=== PATIENT | female | born 1980 | race Caucasian/White ===

== ENCOUNTER 2016-10-25 09:16 | Emergency (ER) | payer MEDICAID | END 2016-10-25 11:14 | disposition left against medical advice (07) | LOC: UCCORT 09:16 | DX: M25.562 Pain in left knee (principal); Z53.21 Procedure and treatment not carried out due to patient leaving prior to being seen by health care provider ==

== ENCOUNTER 2017-06-20 10:35 | Emergency (ER) | payer OTHER ==
[2017-06-20] MEDS ORDERED: Albuterol/Ipratropium NEB.SOL* Albuterol 2.5 MG/Ipratropium 0.5 MG 3 ML INH ONE (11:13)
--- NOTE | 2017-06-20 11:14 | UC ---
Respiratory Complaint HPI - HPI Summary HPI Summary: worsening non productive cough for 1 week, has been using her albuterol but cough and chest tightness is getting worse - History of Current Complaint Chief Complaint: UCRespiratory Stated Complaint: CONGESTION COUGH Time Seen by Provider: 06/20/17 11:07 Hx Obtained From: Patient Hx Last Menstrual Period: 02/20/16 ?: No Onset/Duration: Gradual Onset, Lasting Days - 7, Still Present Timing: Constant Severity Initially: Mild Severity Currently: Moderate Character: Cough: Nonproductive Aggravating Factors: Nothing Alleviating Factors: Nothing Associated Signs And Symptoms: Positive: Chills - Allergies/Home Medications Allergies/Adverse Reactions: Allergies Allergy/AdvReac Type Severity Reaction Status Date / Time Erythromycin Allergy Intermediate Abdominal Verified 06/20/17 11:13 Pain Esomeprazole [From Nexium] Allergy Intermediate Abdominal Verified 06/20/17 11: 13 Pain Ibuprofen AdvReac Unknown d/t Verified 06/20/17 11:13 gastric bypass PMH/Surg Hx/FS Hx/Imm Hx Previously Healthy: No Respiratory History: Asthma - Surgical History Surgical History: Yes Surgery Procedure, Year, and Place: BENIGN TUMORS REMOVED FROM L BREAST, gastric bypass. 12/2014-gallbladder and 2 "internal hernias" - Family History Known Family History: Positive: None - Social History Occupation: Employed Full-time Lives: With Family Alcohol Use: Rare Substance Use Type: None Smoking Status (MU): Former Smoker Have You Smoked in the Last Year: No - Immunization History Most Recent Influenza Vaccination: [id number] Most Recent Tetanus Shot: up to date Most Recent Pneumonia Vaccination: none Review of Systems Constitutional: Chills, Fatigue Skin: Negative Eyes: Negative ENT: Negative Respiratory: Cough Cardiovascular: Negative Gastrointestinal: Negative Genitourinary: Negative Motor: Negative Neurovascular: Negative Musculoskeletal: Negative Neurological: Negative Psychological: Negative Is Patient Immunocompromised?: No All Other Systems Reviewed And Are Negative: Yes Physical Exam Triage Information Reviewed: Yes Appearance: Well-Appearing, No Pain Distress, Well-Nourished Vital Signs Reviewed: Yes Eye Exam: Normal Eyes: Positive: Conjunctiva Clear ENT Exam: Normal ENT: Positive: Normal ENT inspection, Hearing grossly normal, Pharynx normal, TMs normal. Negative: Nasal congestion, Nasal drainage, Trismus Dental Exam: Normal Neck exam: Normal Neck: Positive: Supple, Nontender, No Lymphadenopathy Respiratory Exam: Normal Respiratory: Positive: Chest non-tender, No respiratory distress, No accessory muscle use, Decreased breath sounds, Wheezing Cardiovascular Exam: Normal Cardiovascular: Positive: RRR, No Murmur, Pulses Normal, Brisk Capillary Refill Musculoskeletal Exam: Normal Musculoskeletal: Positive: Strength Intact, ROM Intact, No Edema Neurological Exam: Normal Neurological: Positive: Alert, Muscle Tone Normal Psychological Exam: Normal Skin Exam: Normal Respiratory Course/Dx - Course Course Of Treatment: albuterol, prednisone, zithromax should symptoms worsen or fail to improve follow with pcp - Differential Dx/Diagnosis Differential Diagnosis/HQI/PQRI: Bronchitis, Laryngitis, Lower Resp Infection Provider Diagnoses: Acute exacerbation of bronchospasm, bronchitis Discharge - Discharge Plan Condition: Stable Disposition: HOME Prescriptions: Albuterol 2.5MG/3ML (0.083%)* [Ventolin 2.5 MG/3 ML NEB.YEIMI*] 2.5 mg INH Q4H PRN #1 box PRN Reason: cough/wheeze Azithromycin TAB* [Zithromax TAB (Z-RENY) 250 mg #6 tabs] 2 tab PO .TODAY, THEN 1 DAILY #6 tab predniSONE TAB* [Deltasone TAB*] 50 mg PO DAILY #5 tab Patient Education Materials: Acute Bronchitis (ED), Bronchospasm (ED) Referrals: Cecilia Morse MD [Primary Care Provider] - If Needed
[2017-06-20 11:19] VITALS: BP 122/73
== END 2017-06-20 11:49 | disposition home or self-care (01) ==
LOC: UCCORT 10:35
DX: J20.9 Acute bronchitis, unspecified (principal); Z88.6 Allergy status to analgesic agent; Z88.1 Allergy status to other antibiotic agents; Z98.84 Bariatric surgery status; Z87.891 Personal history of nicotine dependence
CPT/HCPCS: 99212; A9270-GY; G0463

== ENCOUNTER 2019-09-05 09:10 | Emergency (ER) | payer OTHER ==
[2019-09-05 09:34] VITALS: BP 120/94
--- NOTE | 2019-09-05 10:05 | UC ---
Throat Pain/Nasal Dima HPI - HPI Summary HPI Summary: Patient is a 38yo female presenting with c/o chest congestion, burning sensation in her chest when she coughs, and productive cough x4-5 days. Patient states that she thought she had a bad cold and it would go away but her symptoms are getting worse. Notes some nasal congestion and sinus pressure. States she gets similar symptoms almost every year, but last year her bronchitis "rapidly went downhill and caused her to be seriously ill." Patient states this is because she is an asthmatic. Denies SOB but notes wheezing at night. Has tried mucinex and a humidifier at night without relief. Denies fever and chills. Denies n/v. Patient states that when this happens, a Z jutsice and albuterol inhaler are the only things that work for her. - History of Current Complaint Chief Complaint: UCRespiratory Stated Complaint: ST,BURNING CHEST,COUGH Hx Obtained From: Patient Hx Last Menstrual Period: 2 yrs Onset/Duration: Gradual Onset, Lasting Days Severity: Moderate Pain Intensity: 7 Pain Scale Used: 0-10 Numeric - Allergies/Home Medications Allergies/Adverse Reactions: Allergies Allergy/AdvReac Type Severity Reaction Status Date / Time erythromycin base Allergy Abdominal Verified 09/05/19 09:14 Pain esomeprazole [From Nexium] Allergy Abdominal Verified 09/05/19 09:14 Pain ibuprofen Allergy r/t Verified 09/05/19 09:35 gastric bypass sx Home Medications: Home Medications Phentermine HCl 37.5 mg PO QAM 09/05/19 [History Confirmed 09/05/19] Topiramate TAB(*) [Topamax 25 MG tab] 25 mg PO BID 09/05/19 [History Confirmed 09/05/19] guaiFENesin [Mucinex] 600 mg PO BID PRN 09/05/19 [History Confirmed 09/05/19] PMH/Surg Hx/FS Hx/Imm Hx Respiratory History: Asthma - Surgical History Surgical History: Yes Surgery Procedure, Year, and Place: BENIGN TUMORS REMOVED FROM L BREAST, gastric bypass 2013. 12/2014-gallbladder and 2 "internal hernias". 01/2019 large intestine section - Family History Known Family History: Positive: None - Social History Alcohol Use: Rare Substance Use Type: None Smoking Status (MU): Former Smoker Have You Smoked in the Last Year: No When Did the Patient Quit Smoking/Using Tobacco: 2006 - Immunization History Most Recent Influenza Vaccination: [id number] Most Recent Tetanus Shot: up to date Most Recent Pneumonia Vaccination: none Review of Systems All Other Systems Reviewed And Are Negative: Yes Constitutional: Positive: Negative. Negative: Fever, Chills ENT: Positive: Sore Throat, Sinus Congestion. Negative: Ear Ache, Nasal Discharge Respiratory: Positive: Cough - productive, Other - wheezing at night. Negative : Shortness Of Breath Cardiovascular: Positive: Negative Gastrointestinal: Positive: Negative Musculoskeletal: Positive: Negative Neurological: Positive: Negative Physical Exam Triage Information Reviewed: Yes Appearance: No Pain Distress, Well-Nourished, Ill-Appearing Vital Signs: Initial Vital Signs Temp 98.8 F 09/05/19 09:25 Pulse 86 09/05/19 09:25 Resp 18 09/05/19 09:25 BP 120/94 09/05/19 09:25 Pulse Ox 100 09/05/19 09:25 Vital Signs Reviewed: Yes Eyes: Positive: Conjunctiva Inflamed. Negative: Discharge ENT: Positive: Hearing grossly normal, Pharyngeal erythema, Nasal congestion, Nasal drainage - PND, TMs normal, Hoarse voice, Sinus tenderness - maxillary, Uvula midline. Negative: Tonsillar swelling, Tonsillar exudate Neck exam: Normal Neck: Positive: Supple, Nontender, No Lymphadenopathy Respiratory Exam: Normal Respiratory: Positive: Lungs clear, Normal breath sounds, No respiratory distress. Negative: Crackles, Rhonchi, Stridor, Wheezing Cardiovascular Exam: Normal Cardiovascular: Positive: RRR Neurological: Positive: Alert Psychological: Positive: Age Appropriate Behavior Skin Exam: Normal Throat Pain/Nasal Course/Dx - Course Course Of Treatment: I treated patient with z justice and albuterol inhaler, as she is an asthmatic with increased sputum production and chest tightness/wheezing. Instructed patient to continue with symptomatic treatment as well and to follow up with PCP if symptoms do not resolve. Patient voiced understanding and agreed with treatment plan. - Differential Dx/Diagnosis Provider Diagnosis: Bronchospasm with bronchitis, acute, Asthma Discharge ED - Sign-Out/Discharge Documenting (check all that apply): Patient Departure All imaging exams completed and their final reports reviewed: No Studies - Discharge Plan Condition: Stable Disposition: HOME Prescriptions: Albuterol HFA INHALER* [Ventolin HFA Inhaler*] 1 - 2 puff INH Q6H PRN #1 mdi PRN Reason: Sob/Wheezing Azithromyxin JUSTICE (NF) [Z-Justice (Zithromax) 250 mg tabs #6] 2 tab PO .TODAY, THEN 1 DAILY #6 tab Patient Education Materials: Acute Bronchitis (ED), Bronchospasm (ED) Referrals: Cecilia Morse MD [Primary Care Provider] - If Needed Additional Instructions: Take the Z justice as prescribed. You may continue to take mucinex to help reduce your mucus production. Continue use of your inhaler as needed for your shortness of breath. You may take tylenol as directed for pain relief. Get plenty of rest and increase your fluid intake. Follow up with your primary care doctor if your symptoms worsen or do not resolve within 7 days. - Billing Disposition and Condition Condition: STABLE Disposition: Home - Attestation Statements Provider Attestation: Per institutional requirements, I have reviewed the chart, however, I was not consulted specifically or made aware of this patient by the midlevel provider. I did not personally evaluate, interact with , or disposition this patient.
== END 2019-09-05 10:20 | disposition home or self-care (01) ==
LOC: UCCORT 09:10
DX: J45.909 Unspecified asthma, uncomplicated (principal); R09.81 Nasal congestion; Z88.1 Allergy status to other antibiotic agents; Z88.8 Allergy status to other drugs, medicaments and biological substances; Z87.891 Personal history of nicotine dependence
CPT/HCPCS: 99212; G0463